=== PATIENT | male | born 1995 | race Caucasian/White ===

== ENCOUNTER 2017-01-29 11:24 | Emergency (ER) | payer SELFPAY ==
[~2017-01-29 11:24] MED LIST: AMOXICILLIN 8751 TAB PO; CELEXA 20MG20 MG/TA1 PO; CITALOPRAM HBR10 MG; CYCLOBENZAPRINE5 M1 PO; FLONASE0.05 MG/AC NS; IBUPROFEN200 MG PO; NORCO 325 MG-51 TA1 PO; PERCOCET 325 MG1 TA2 PO; PREDNISONE20 M1 PO; SEPTRA DS 8001 TAB PO; TYLENOL 325MG325 MG PO; ZOFRAN ODT8 M1 PO; [UNRECOGNIZED DRUG - OTHER] OT
[2017-01-29] MEDS ORDERED: CITALOPRAM HBR10 MG PO (11:34)
[2017-01-29] MEDS ORDERED: VITAMIN C PURE500 M1 (11:35)
[2017-01-29] MEDS ORDERED: NAPROXEN D/R500 MG PO (12:10)
[2017-01-29 12:22] VITALS: BP 112/61
== END 2017-01-29 12:25 | disposition home or self-care (01) ==
LOC: ED 11:24
DX: M65.831 Other synovitis and tenosynovitis, right forearm (principal); M65.832 Other synovitis and tenosynovitis, left forearm; M75.21 Bicipital tendinitis, right shoulder; M75.22 Bicipital tendinitis, left shoulder